=== PATIENT | female | born 1990 ===

== ENCOUNTER 2017-10-22 23:35 | Inpatient (IN) | payer MEDICAID, SELFPAY ==
[2017-10-23 00:24] VITALS: BMI 25.1
[2017-10-23] MEDS ORDERED: Lactated Ringer's 1,000 ML IV ONE (00:29)
[2017-10-23] MEDS ORDERED: Lactated Ringer's 1,000 ML IV SCH ×2 (00:30→09:30)
[2017-10-23 01:14] LABS: BASO % 0.3 % (0.0-2.0); EOS # 0.6 K/uL (0.0-0.7); EOS % 4.4 % (0.0-4.0); LYMPH % 23.7 % (20.0-40.0); MEAN CELL VOLUME 88.2 fl (81.0-99.0); MEAN PLATELET VOLUME 9.5 fl (7.2-11.7); MONO # 0.9 K/uL (0.0-0.8); MONO % 7.1 % (0.0-10.0); NEUT # 8.2 K/uL (1.8-7.0); NEUT % 64.5 % (50.0-75.0); NRBC % 0.2 % (0.0-0.0); RBC 4.35 Mil/uL (3.80-5.20); RED CELL DISTRIBUTION WIDTH 17.2 % (11.5-14.5); WHITE BLOOD COUNT 12.7 K/uL (4.8-10.8)
--- NOTE | 2017-10-23 02:00 | OBADHP ---
Datetime: 10/23/2017 01:01 Admit Comment, IP Provider: Pt is a 27 yo , 39 wk present to [facility] due to water break and contrac tion 15-20 min apart that started at [id number] 10/22. Pt denies any trauma, falls. She denies sexual activity in last 24h. Pt state there is no complication during Allergy:[place] Med: PNV PMH: none PSH: none OBHx: none PFH: none SOcial: denies smoke,drink or drug use. Ros: negative except HPI Assessment and plan Pt is 25 yo f 39 wk present to [facility] due to water break and contraction. Admitted for delivery Pt is not acute distress PE: Membrane raptured, 3cm, 70%, -3 at 00:14 Vital WNL strip reassruing, contraction noted Plan CBC with diff, CMP, RPR, HIV, NPO + vital monitoring Cytotic 50mcg PO LR 999 1L, + 1L 125/h anesthesiology consult for epidural Case discussed with DR. Lamine Jenkins, PGY1 Addendum by Dr. Raman: Patient evaluated independently and I agree with the above plan of care Comments, ACOG Physical Exam: pt is lying comfortable with no acute distress cardio: s1 s2 heard no extrea heart sound lung clear in all cuadrant abd: bs+, nontender, fundos above umblicius extremities: nontender Pelvic: membrane raptured, 3cm,70%,-3 at 00:14 IP Chief Complaint: Uterine contractions IP Adm Impression: Term, intrauterine ; Ruptured Membranes IP Admit Plan: Admit to unit Datetime: 10/22/2017 23:46 Pelvic Type - PN: Adequate Extremities - PN: Normal Abdomen - PN: Normal Back - PN: Not Done Breast - PN: Not Done Lungs - PN: Normal Heart - PN: Normal Thyroid - PN: Not Done Neurologic - PN: Not Done HEENT - PN: Normal General - PN: Normal FHR - Baseline A Provider: 140 Gestation - Est Wks by US: 39.0 Vital Signs Provider: Reviewed; Within Normal Limits NICHD Variability Prov Fetus A: Moderate 6-25bpm NICHD Accel Fetus A IP Provider: 15X15 FHR Category Provider Fetus A: Category I NICHD Decel Fetus A IP Provider: None Dilatation, Provider: 3 Effacement, Provider: 70 Station, Provider: -3 Genitourinary Exam: Not Done
[2017-10-23] MEDS ORDERED: Oxytocin 30 UNIT 30 UNITS/500 ML BAG IV ONE (06:30)
[2017-10-23] MEDS ORDERED: OXYTOCIN/0.9 % NS 20 UNIT/1,000 ML BAG IV SCH (06:30)
[2017-10-23] MEDS ORDERED: Fentanyl/Bupivacaine HCl 250 ML EPI ONE (09:16)
[2017-10-23] MEDS ORDERED: Lidocaine 2% PF (10 ml) Amp ONE (12:33)
[2017-10-23] MEDS ORDERED: Oxycodone/Acetaminophen 5/325 mg Tab PO PRN ×2 (19:45→22:35)
[2017-10-23] MEDS ORDERED: Benzocaine/Menthol SPRAY TOP PRN ×2 (19:45→22:35)
--- NOTE | 2017-10-24 02:48 | OBPN ---
Datetime: 10/23/2017 16:31 IP Progress Impression Other: irregular CTX IP Progress Impression: Arrest of dilatation/descent IP Progress Plan: Augmentation; Anticipate Vaginal Delivery Contraction Comments Provider: Q6 min FHR - Baseline A Provider: 130 Gestation - Est Wks by US: 39.0 Vital Signs Provider: Reviewed; Within Normal Limits NICHD Accel Fetus A IP Provider: 15X15 FHR Category Provider Fetus A: Category I NICHD Variability Prov Fetus A: Moderate 6-25bpm Dilatation, Provider: 10 Station, Provider: 0 NICHD Decel Fetus A IP Provider: None Datetime: 10/23/2017 14:15 IP Procedures: Sterile Vag Exam IP Progress Note Comment: S: Had epidural catheter replaced, now more comfortable. Feeling pressure with contractions. O: see exam section A/P: 25yo G1 at 39.0 weeks admitted for PROM, close to complete dilation. Plan to let her reach co mplete and labor down while her new epidural becomes effective. Anticipate vaginal delivery soon. Brit Redd OB Fellow OB Hospitalist on-call...made aware of status by Dr Tramaine Nuñez, Provider: 100 Datetime: 10/23/2017 08:50 Presentation-Admit: Vertex
--- NOTE | 2017-10-24 02:50 | OBPN ---
Datetime: 10/23/2017 16:31 IP Progress Note Comment: S: Complete at approximately 3:20 and began pushing. O: There has been minimal descent A/P: 25yo G1 now in stage 2 labor with minimal descent over the last 50 min due to poor contractio n pattern. - Starting pitocin for augmentation Brit Redd MD OB Fellow OB Hospitalist note: made aware. Mya has been progressing well. rec'd epidural. She has irregau lr CTX and agree with Pitocin augmentation
--- NOTE | 2017-10-24 02:53 | OBDS ---
DELIVERY PERSONNEL Delivery Doctor: Jimmy Barahona DO Resident: Dr Redd,Fellow MATERNAL INFORMATION Delivery Anesthesia: Epidural Medications in Delivery: pitocin Estimated Blood Loss (ml): 300 Placenta Cultured: No Maternal Complications: None Provider Comments: 25yo G1 now P1 presented with PROM and progressed to with expectant manageme nt. was vigorous at and needed no additional resuscitation. Placed on mom's chest immedi ately after delivery and delayed cord clamping was performed. Mom and baby are in stable condition. Brit Redd MD OB Fellow OB Hospitalist note. With OB fellow, I attended and 2nd degree perineal repair done by Dr Ju salmeron ... MA[facility]O LABOR SUMMARY [facility]: 10/30/2017 00:00 No. Babies in Womb: 1 Attempted: No Labor Anesthesia: Epidural LABOR INFORMATION Reason for Induction: Not Applicable Onset of Labor: 10/22/2017 15:00 Complete Dilatation: 10/23/2017 15:18 Cervical Ripening Agents: Other Oxytocin: Augmentation (Annotations: Data stored by CPN on behalf of user) Group B Beta Strep: Negative Antibiotics # of Doses: 0 Antibiotics Time of Last Dose: 0 Steroids Given: None Reason Steroids Not Administered: Not Applicable MEMBRANES Membranes Rupture Method: Spontaneous Rupture of Membranes: 10/22/2017 15:00 Length of Rupture (hrs): 28.00 Amniotic Fluid Color: Clear Amniotic Fluid Amount: Moderate Amniotic Fluid Odor: Normal STAGES OF LABOR Stage 1 hrs: 24 Stage 1 min: 18 Stage 2 hrs: 3 Stage 2 min: 42 Stage 3 hrs: 0 Stage 3 min: 5 Total Time in Labor hrs: 28 Total Time in Labor min: 5 VAGINAL DELIVERY Episiotomy: None Laceration Extension: Second Degree Laceration Type: Perineal Laceration Repair: Yes Laceration Repair Note: The laceration was repaired with a 2-0 Vicryl in the usual fashion. Hemosta sis was adequate after repair. Sponge Count Correct: Yes Sharps Count Correct: Yes Count Comment: Counts correct 5 Lap pads one syringe 2 suture needles BABY A INFORMATION Infant Delivery Date/Time: 10/23/2017 19:00 Method of Delivery: Vaginal Born in Route : No : N/A Forceps: N/A Vacuum Extraction: N/A Shoulder Dystocia : No SHOULDER DYSTOCIA BABY A Infant Delivery Date/Time: 10/23/2017 19:00 PRESENTATION/POSITION BABY A Presentation: Cephalic Cephalic Presentation: Vertex Breech Presentation: N/A PLACENTA INFORMATION BABY A Placenta Delivery Time : 10/23/2017 19:05 Placenta Method of Delivery: Expressed Placenta Status: Delivered SCORES BABY A Heart Rate 1 min: >100 bpm Resp Effort 1 min: Good Cry Reflex Irritability 1 min: Cough or Sneeze or Pulls Away Muscle Tone 1 min: Active Motion Color 1 min: Body [place], Extremities Blue SCORE 1 MIN: 9 Heart Rate 5 min: >100 bpm Resp Effort 5 min: Good Cry Reflex Irritability 5 min: Cough or Sneeze or Pulls Away Muscle Tone 5 min: Active Motion Color 5 min: Body [place], Extremities Blue SCORE 5 MIN: 9 INFORMATION BABY A Gestational Age at Delivery: 39.0 Gestational Status: Term Outcome : Liveborn Infant Condition : Stable Sex: Male IDENTIFICATION/MEDS BABY A ID Band Number: [id number] ID Band Location: Left Leg; Left Arm WEIGHT/LENGTH BABY A Infant Birthweight (gms): 2925 Infant Weight (lb): 6 Weight (oz): 7 CORD INFORMATION BABY A No. Cord Vessels: 3 Nuchal Cord : N/A Nuchal Cord Other: 0 True Knot: 0 Cord Blood Taken: Yes Infant Suction: None
[2017-10-24 06:19] LABS: BASO % 0.1 % (0.0-2.0); EOS # 0.2 K/uL (0.0-0.7); EOS % 1.1 % (0.0-4.0); HEMOGLOBIN 10.2 g/dL (12.0-16.0); LYMPH # 2.2 K/uL (1.0-4.3); LYMPH % 13.1 % (20.0-40.0); MEAN CELL VOLUME 88.7 fl (81.0-99.0); MEAN CORPUSCULAR HEMOGLOBIN 29.9 pg (27.0-31.0); MEAN CORPUSCULAR HGB CONC 33.7 g/dL (33.0-37.0); MONO # 0.9 K/uL (0.0-0.8); MONO % 5.5 % (0.0-10.0); NEUT # 13.2 K/uL (1.8-7.0); NEUT % 80.2 % (50.0-75.0); RBC 3.4 Mil/uL (3.80-5.20); WHITE BLOOD COUNT 16.5 K/uL (4.8-10.8)
--- NOTE | 2017-10-24 11:20 | OBPPN ---
Datetime: 10/24/2017 06:21 PP Pain Prov: Within normal limits PP Nausea Prov: Denies PP Flatus Prov: Yes PP BM Prov: No PP Breasts Prov: Not Done PP Heart Prov: Normal PP Lungs Prov: Normal PP Abdomen/Uterus Prov: Normal PP Lochia Prov: Normal PP Vulva/Perineum Prov: Not Done PP CVA Tenderness Prov: Not Done PP Extremities Prov: Normal PP C/S Incision Prov: Not Applicable PP Progress Prov: Normal PP Comments Phys Exam Prov: hgb 10.2 PP Impression Prov: Normal progression PP Plan Prov: Continue present management PP Progress Note Prov: S: 27 yo female 39wk s/p on 10/23/17 evaluated on PPD1. Pt seen and examined at bed side today morning. There was no overnight events. Pt does complain of pain, but hav e been controlled with medication. Pt is able to ambulate with no difficulty, she is using formula, a nd breast feeding. Lochia is similar to menses. Pt Have not passed stool nor gas. Pt was able to void . PT denies fever, chills, diarrhea, nausea/vomiting, chest pain, dyspnea, and dizziness. Pt state t hat she would like to talk to her for circumcision before making decision O: 13/38.4 VS: Stable, WNL GEN: NAD Cardio: S1S2, no murmurs or extra heart sound Lungs: clear breath sounds b/l, no wheezing Abdomen: BS+, appropriate tenderness to palpation. Uterus is firm and at the level of the umbilic us. EXT: No edema, calves nontender NEURO/PSYCH: AAOx3, no grossly focal deficits, preserved affect and mood. H/H (post ): Pending Assessment/Plan: 27 yo female 39 s/p on 10/23/17 evaluated on PPD1. Pt remains afebrile , tolerating pain with medication. Tolerating diet. Will be discharged tomorrow 10/25/17. Continue wi th current management Encourage and ambulating Pt will receive Dtap upon discharge Pt will need MMR upon discharge Ibuprofen 600mg q6 for pain PRN Marva PGY1 OB attending addendum: Patient seen and examined by me. Agree with above assessment and plan with following update and mo difications. Circumcision discussed with patient and she states she and FOB had decided against havin g a circumcision. P: Rx iron on discharge Perineal care sitz baths discussed with patient. IP PP Procedures: None Vital Signs Provider PP: Reviewed; Within Normal Limits
[2017-10-25] MEDS ORDERED: Tdap Vaccine 0.5 ml Vial (10-64 yrs) IM ONE (08:00)
[2017-10-25] MEDS ORDERED: Measles, Mumps, and Rubella 0.5 ML VIAL SC ONE (08:00)
--- NOTE | 2017-10-25 19:40 | OBPPN ---
Datetime: 10/25/2017 06:10 PP Pain Prov: Within normal limits PP Nausea Prov: Denies PP Flatus Prov: Yes PP BM Prov: Yes PP Breasts Prov: Not Done PP Heart Prov: Normal PP Lungs Prov: Normal PP Abdomen/Uterus Prov: Normal PP Lochia Prov: Normal PP Vulva/Perineum Prov: Not Done PP CVA Tenderness Prov: Normal PP Extremities Prov: Normal PP C/S Incision Prov: Not Applicable PP Progress Prov: Normal PP Impression Prov: Normal progression PP Plan Prov: Continue present management; Discharge PP Progress Note Prov: S: 27 yo female 39wk s/p on 10/23/17 evaluated on PPD2. Pt seen and examined at bed side no acute event overnight Pt complain of back pain on left, mostly when she is l aicha down, denies dysuria, or fever, chills. Abdominal Pain controlled with medication. Able to ambul ate and void, using Formula + breastfeed. Lochia is similar to menses. Pt Have passed stool. PT denie s diarrhea, nausea/vomiting, chest pain, dyspnea, and dizziness. Pt Decline Circumcision. O: aCBC13/38.4/ pCBC ..2 WBC: 16.5 VS: Stable, WNL GEN: NAD Cardio: S1S2, no murmurs or extra heart sound Lungs: clear breath sounds b/l, no wheezing Abdomen: BS+, appropriate tenderness to palpation. Uterus is firm and at the level of the umbilic us. Back: NO CVA tenderness B/L EXT: No edema, calves non-tender NEURO/PSYCH: AAOx3, no grossly focal deficits, preserved affect and mood. H/H (post ): .. Assessment/Plan: 27 yo female 39 s/p on 10/23/17 evaluated on PPD2. Pt afebrile, tolera ting pain, medication help. On regular diet. Will be discharged today 10/25/17. Continue with current management Back pain, WBC of 16.5 Denies dysuria, No fever, No CVA tenderness Will Order UA Encourage and ambulating Pt will receive Dtap upon discharge Pt will need MMR upon discharge Ibuprofen 600mg q6 for pain PRN [id number]
--- NOTE | 2017-10-25 19:40 | OBDCSUM ---
Datetime: 10/25/2017 10:45 Discharged to, Provider: Home Follow up at, Provider: OB Disch Instr Activity: Normal activity; May be up to bathroom; May be up for meals; May Shower Disch Instr Diet: Regular Discharge Instructions, Provider: Routine instructions given Discharge Diagnosis, Provider: Term Delivered Discharge Time: 10/25/2017 10:46 Follow up in weeks, Provider: 4-6 weeks Disch Referrals: None Disch Activity Restrictions: Minimize stair-climbing; No sexual activity; Nothing in vagina - Interc ourse, tampons, douche Discharge Comment, Provider: EGA: 39wk Diagnosis: NVD risk factors: None [place]: 10/23/17 @ 19:00 Post- Summary: No complications during post- period. Lochia less than menses. Pt able to pass gas and had a BM, ambulate and pass urine. Tolerate regular diet, Fundus firm below umbilicus level. CBC post-: 12.8/38.1 Discharge Instructions: Encourage PNV 1 tab PO daily MMR and TDAP will be given upon discharge Ibuprofen 600mg 1 tab prn for mild-mod pain ER precautions: If excessive bleeding or fever without relief from medication, go to ED PT was urged if feeling sad, mood swing, depression, neglect of baby, suicidal thoughts, homicidal thought should go to ER or call 911 for help Pt should go to her Primary care doctor if have difficulty with breast feeding F/U 4-6 week for PP visit Pau Rodriguez MD PGY1
[2017-10-26 01:08] VITALS: BP 111/78; PULSE 81; RESP 20; TEMP 98.5; O2SAT 99
== END 2017-10-25 13:30 | disposition home or self-care (01) | DRG 775 ==
LOC: H.EROB2 23:35 → H.L&D 10-23 00:29 → H.OB/GYN 10-23 21:37
PROVIDERS: ADMIT Obstetrics & Gynecology; ATTEND Obstetrics & Gynecology
PROC: 10E0XZZ Delivery of Products of Conception, External Approach (ICD-10-PCS; principal; 2017-10-23)
PROC: 0KQM0ZZ Repair Perineum Muscle, Open Approach (ICD-10-PCS; 2017-10-23)
PROC: 4A1HXCZ Monitoring of Products of Conception, Cardiac Rate, External Approach (ICD-10-PCS; 2017-10-23)
PROC: 3E0234Z Introduction of Serum, Toxoid and Vaccine into Muscle, Percutaneous Approach (ICD-10-PCS; 2017-10-25)
DX: O42.02 Full-term premature rupture of membranes, onset of labor within 24 hours of rupture (principal); O62.0 Primary inadequate contractions; O70.1 Second degree perineal laceration during delivery; Z37.0 Single live birth; Z3A.39 39 weeks gestation of pregnancy; Z23 Encounter for immunization